=== PATIENT | female | born 1990 | race Caucasian/White ===

== ENCOUNTER 2020-01-17 00:28 | Outpatient (CLI) | payer BC, SELFPAY ==
[2020-01-17 17:26] LABS: SARS-CoV-2 RNA PCR Negative
== END 2020-01-17 00:29 | disposition home or self-care (01) ==
LOC: ANHCOVIDDT 00:28
PROVIDERS: Visit Provider Surgery Plastic and Reconstructive Surgery
DX: Z01.812 Encounter for preprocedural laboratory examination (principal); Z20.828 Contact with and (suspected) exposure to other viral communicable diseases
CPT/HCPCS: 87635; C9803; U0003

== ENCOUNTER 2020-01-19 00:27 | Day surgery (SDC) | payer BC, SELFPAY ==
[2020-01-10 15:07] VITALS: BMI 18.8
--- NOTE | 2020-01-18 13:41 | WPDANESEPPF ---
Anes - Initial Pre Proc Eval Procedure: Operation Date: 01/19/20 07:30 Proposed Procedures p Excision Skin Lesion Of Left Buttock - Richard Díaz MD Date/Time: 01/18/20 13:41 Surgeon: Richard Díaz MD Pre Op Diagnosis: Skin Lesion On Buttock Patient Data Age: 29 Gender: F Height: 5 ft 7 in Weight: 54.43 kg Allergies Allergy/AdvReac Type Severity Reaction Status Date / Time No Known Allergies Allergy Verified 01/10/20 15:07 Home Medications Medication Instructions Recorded Confirmed Type docusate sodium 100 mg capsule 100 mg PO BID #14 cap 01/04/20 01/10/20 Rx hydrocodone 5 mg-acetaminophen 325 1 tablet PO Q6H PRN #15 tablet 01/04/20 01/10/20 Rx mg tablet ondansetron HCl 4 mg tablet 4 mg PO Q6H PRN #30 tablet 01/04/20 01/10/20 Rx multivitamin 1 tablet PO DAILY 01/10/20 01/10/20 History Patient hx anesthesia problems: none Family hx anesthesia problems: none PMFSH Past Medical History Medical History (Updated 01/18/20 @ 13:42 by Michael Fairchild MD) Healthy adult Surgical History Surgical History History of dilatation and curettage History of removal of ovarian cyst Social History Social History Smoking status: Never smoker Alcohol intake: never Substance use: never Spiritual care concerns: No Anes - Eval Final PreProcedure Day of Procedure 01/18/20 13:41 Patient weight: normal Heart: regular rate and rhythm Lungs: clear to auscultation Airway: Mallampati scale Last oral intake: >/= 8 hours ASA classification: I Emergent: no Anesthetic plan: proceed Anesthesia type and monitoring: general ETT and standard monitoring Informed Consent: The patient's anesthetic plan and its attendant risks and benefits were discussed with the patient/family/POA. Questions were solicited and answers provided to the satisfaction of the patient/family/POA.
[2020-01-19] VITALS (7 sets, daily range): BP systolic 104–137; BP diastolic 63–93; PULSE 54–99; RESP 10–18; TEMP 36.5–36.7; O2SAT 98–100
[2020-01-19] MEDS: LACTATED RINGERS 1,000 ML 30 ML IV CONT ×2 (06:50→08:53)
--- NOTE | 2020-01-19 07:10 | WPDHPUPDATE1 ---
History and Physical Update Update Date/Time: 01/19/20 07:10 History and Physical has been reviewed, including an updated exam of the patient. There are NO changes in the patient's condition. Risks, benefits, and alternatives have been discussed and questions answered. Patient agrees to proceed with procedure.
[2020-01-19] MEDS: ceFAZolin 2 GM/D5W 50 ML 2 GM/50 ML BAG IVPB (07:24)
--- NOTE | 2020-01-19 07:24 | PM.PROC ---
Procedure Note - Detailed Date of procedure: 01/19/20 Pre-op diagnosis: Skin Lesion On Buttock Congenital nevus buttocks Post-op diagnosis: same Procedure performed: 1. Excision congenital nevus buttocks 12cm 2. 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 Risks, benefits, alternatives were discussed in extensive detail. I want her to be very realistic about the risks involved as well as expectations. Discussed the changes that will occur and this can lead to significant gluteal deformity. Made sure answered all of her questions to her satisfaction. She understands this is likely a several stage procedure. All questions answered and consent obtained. She was marked in the preoperative holding area. She was taken to the operating room placed supine on the operating room table. Anesthesia provided by anesthesiology and prepped and draped in a standard sterile fashion. Surgical time-out was taken. 1% lidocaine and 0.25% Marcaine with epinephrine was used anesthetize locally. A 15 blade used to make an incision and I elevated just in the subcutaneous plane deep to the nevus. I then advanced this estimating the volume to be removed. I elevated lateralllly in the subcutaneous plane an advancement flap. I closed with 2-0 Vicryl (sutured to sacral periosteum when possible) followed by 3-0 Monocryl and 3-0 nylon (inferior) 3-0 Chromic (superior at remaining nevus). Dressing was placed. Anesthesia: GETA Surgeon: Richard Díaz MD Estimated blood loss (mL): 10 Drains: No Packing: No Pathology: yes ( Congenital nevus) Complications: No immediate complications Condition: stable Disposition: PACU
[2020-01-19] MEDS: LIDO 1%/EPINEPHRINE 1:100,000 20 ML VIAL INFILTRATE (08:05)
== END 2020-01-19 10:00 | disposition home or self-care (01) ==
PROVIDERS: PCP Family Medicine; Visit Provider Surgery Plastic and Reconstructive Surgery
PROC: (CPT 14301; principal; 2020-01-19 07:30)
DX: Q82.5 Congenital non-neoplastic nevus (principal)
CPT/HCPCS: 14301; 14302 ×3; 88305; J0690; J1100; J2250; J2405; J2704; J3010; J7120

== ENCOUNTER → 2020-09-18 03:13 | Outpatient (CLI) | payer BC, SELFPAY ==
[2020-09-18 20:06] LABS: SARS-CoV-2 RNA PCR Negative
== END ==
PROVIDERS: PCP Family Medicine; Visit Provider Surgery Plastic and Reconstructive Surgery
DX: Z01.812 Encounter for preprocedural laboratory examination (principal); Z20.822 Contact with and (suspected) exposure to COVID-19
CPT/HCPCS: C9803; U0003; U0005

== ENCOUNTER 2020-09-21 02:37 | Day surgery (SDC) | payer BC, SELFPAY ==
[2020-09-10 12:38] VITALS: BMI 19.1
--- NOTE | 2020-09-20 13:09 | P.PNAN_ITS ---
Anes - Initial Pre Proc Eval Procedure: Operation Date: 09/21/20 09:00 Proposed Procedures p Excision Of Congenital Nevus Buttocks - Richard Díaz MD Date/Time: 09/20/20 13:09 Surgeon: Richard Díaz MD Pre Op Diagnosis: Congenital Nevus Buttocks Patient Data Age: 30 Gender: F Height: 1.7 m Weight: 55.45 kg Allergies Allergy/AdvReac Type Severity Reaction Status Date / Time No Known Allergies Allergy Verified 09/21/20 07:46 Home Medications Medication Instructions Recorded Confirmed Type multivitamin 1 tablet PO DAILY 01/10/20 09/21/20 History hydrocodone 5 mg-acetaminophen 325 1 tablet PO Q6H PRN #15 tablet 09/05/20 09/21/20 Rx mg tablet tkbbrnke-xto-pbgfh acid 200 1 tablet PO DAILY 09/05/20 09/21/20 History mcg-collagen, hydrolyzed 25 mg chew tablet ondansetron HCl 4 mg tablet 4 mg PO Q6H PRN #30 tablet 09/05/20 09/21/20 Rx Patient hx anesthesia problems: none Family hx anesthesia problems: none [facility] Past Medical History Medical History Healthy adult Surgical History Surgical History History of dilatation and curettage History of removal of ovarian cyst Family History Family History Other Diabetes mellitus Heart disease Social History Social History Smoking status: Never smoker Second hand tobacco smoke exposure: No Alcohol intake: never Substance use: never Substance use type: does not use Living arrangements: with family Spiritual care concerns: No Anes - Eval Final PreProcedure Day of Procedure 09/20/20 13:09 Patient weight: normal Heart: regular rate and rhythm Lungs: clear to auscultation and normal air movement Airway: Mallampati scale class II Neurological: alert and oriented Last oral intake: >/= 8 hours ASA classification: I Emergent: no Anesthetic plan: proceed Anesthesia type and monitoring: general GIVS and LMA Informed Consent: The patient's anesthetic plan and its attendant risks and benefits were discussed with the patient/family/POA. Questions were solicited and answers provided to the satisfaction of the patient/family/POA.
[2020-09-21 07:03] VITALS: BP 135/85; PULSE 86; RESP 16; TEMP 36.8; O2SAT 100
[2020-09-21] MEDS: LACTATED RINGERS 1,000 ML 30 ML IV CONT (07:56)
--- NOTE | 2020-09-21 08:25 | WPDHPUPDATE1 ---
History and Physical Update Update Date/Time: 09/21/20 08:25 History and Physical has been reviewed, including an updated exam of the patient. There are NO changes in the patient's condition. Risks, benefits, and alternatives have been discussed and questions answered. Patient agrees to proceed with procedure.
--- NOTE | 2020-09-21 08:40 | P.OP_ITS ---
Procedure Note - Detailed Date of procedure: 09/21/20 Pre-op diagnosis: Congenital Nevus Buttocks Post-op diagnosis: same Procedure performed: 1. Excision congenital nevus buttocks 12cm 2. Adjacent tissue transfer 12 x 12cm (144 cm2) Description of procedure: Preoperatively the risks, benefits, alternatives were discussed in extensive detail. I want her to be very realistic about the risks involved as well as expectations. She would like proceed as she has had this congenital nevus since however has gotten much darker in color with elevation. She understands there is a risk of malignant transformation of malignant melanoma. Further this is catching on clothes and has become bothersome. Because of all this I think it is very reasonable to proceed. She understands this is a serial procedure and may need additional excisions. Also this can deform the local structures. All questions answered and consent obtained. She was taken to the operating room. Anesthesia provided by anesthesiology. She was placed in a prone position with adequate care taken to protect all bony prominences. Prepped and draped in a standard sterile fashion. Surgical time- out was taken. 1% lidocaine and 0.25% Marcaine with epinephrine were used anesthetize locally. A 15 blade used to make an incision. I was able to elevate this and completely excise the congenital nevus. I had to undermine laterally and advanced this in order to provide closure. Closed with 2-0 Vicryl, 3-0 Monocryl followed by 3-0 chromic. Dressing was placed. She was awoke and taken to the PACU without difficulty. All instrument sponge counts were correct the end of the case. Anesthesia: GETA Surgeon: Richard Díaz MD Estimated blood loss (mL): 10 Drains: No Packing: No Pathology: yes (Congenital nevus) Complications: No immediate complications Condition: stable Disposition: PACU Findings: I was able to completely excise the congenital nevus. Lateral a dvancement flap used for closure.
[2020-09-21] MEDS: LIDO 1%/EPINEPHRINE 1:100,000 50 ML VIAL 15 ML INFILTRATE (08:50)
[2020-09-21] MEDS: ceFAZolin 2 GM/D5W 50 ML 2 GM/50 ML BAG IVPB (08:50)
[2020-09-21 10:01] VITALS: BP 123/77; PULSE 78; RESP 12; TEMP 36; O2SAT 100
[2020-09-21 10:15] VITALS: BP 120/73; PULSE 73; RESP 11; O2SAT 100
[2020-09-21 10:30] VITALS: BP 119/90; PULSE 60; RESP 15; O2SAT 100
[2020-09-21 10:39] VITALS: BP 125/63; PULSE 63; RESP 15; O2SAT 100
[2020-09-21 10:58] VITALS: BP 137/77; PULSE 83; RESP 12
== END 2020-09-21 11:06 | disposition home or self-care (01) ==
PROVIDERS: PCP Family Medicine; Visit Provider Surgery Plastic and Reconstructive Surgery
PROC: (CPT 14301; principal; 2020-09-21 09:00)
DX: Q82.5 Congenital non-neoplastic nevus (principal)
CPT/HCPCS: 14301; 14302 ×3; 88305; A9270; J0690; J1100; J2250; J2405; J2704; J2710; J3010; J7120